=== PATIENT | male | born 1940 | race Caucasian/White ===

== ENCOUNTER 2016-11-28 16:35 | Emergency (ER) | payer MEDICARE, OTHER ==
[2016-11-28 17:21] LABS: HEMOGLOBIN 10.9 gm/dl (14.0-17.5); RED BLOOD COUNT 3.66 M/UL (4.20-5.50); WHITE BLOOD COUNT 18.6 K/UL (4.5-11.0)
[2017-01-30] MEDS ORDERED: CARDIZEM30 MG PO (22:19)
[2017-01-30] MEDS ORDERED: LIPITOR TAB 2020 MG PO (22:20)
[2017-01-30] MEDS ORDERED: NEURONTIN 300300 MG PO (22:20)
[2017-01-30] MEDS ORDERED: LANTUS100 UNIT/1 SQ (22:21)
[2017-01-30] MEDS ORDERED: MIRALAX17 GM PO (22:21)
[2017-01-30] MEDS ORDERED: CARTIA XT240 MG PO (22:21)
[2017-01-30] MEDS ORDERED: OMEPRAZOLE20 M1 PO (22:22)
[2017-01-30] MEDS ORDERED: NOVOLOG FL100 UNIT/1 SQ (22:22)
[2017-01-30] MEDS ORDERED: ADVAIR 250-501 EACH INH (22:23)
[2017-03-18] MEDS ORDERED: MIDODRINE HCL5 MG PO (00:44)
[2017-03-18] MEDS ORDERED: MEGACE TAB 40 M40 MG PO (00:45)
[2017-03-18] MEDS ORDERED: FLOMAX 0.4 MG0.4 MG PO (00:46)
[2017-03-18] MEDS ORDERED: FINASTERIDE5 MG PO (00:48)
[2017-03-18] MEDS ORDERED: NOVOLIN 70100 UNIT/1 SQ (01:08)
[2017-03-18] MEDS ORDERED: LANTUS INS100 UTS/M1 SQ (01:08)
[2017-03-18] MEDS ORDERED: NOVOLOG 10100 UNITS/ INJ (01:10)
[2017-03-18] MEDS ORDERED: PHOSLO 667 MG667 MG PO (22:21)
[2017-03-22] MEDS ORDERED: LORTAB 5-325 M1 EACH PO (22:20)
== END 2016-11-28 23:05 | disposition short-term general hospital (02) ==
LOC: ER1 16:35
PROVIDERS: Emergency Medicine
DX: E11.52 Type 2 diabetes mellitus with diabetic peripheral angiopathy with gangrene (principal); F17.210 Nicotine dependence, cigarettes, uncomplicated; D64.9 Anemia, unspecified; I13.10 Hypertensive heart and chronic kidney disease without heart failure, with stage 1 through stage 4 chronic kidney disease, or unspecified chronic kidney disease; E11.22 Type 2 diabetes mellitus with diabetic chronic kidney disease; N18.9 Chronic kidney disease, unspecified; Z99.2 Dependence on renal dialysis
CPT/HCPCS: 36415; 71010; 73610; 80053; 82550; 82553; 83874; 84484; 85025; 85610; 85730; 87040; 93005; 93925; 93970; 96365; 96366; 96367; 96375; 96376; 99285; J0713; J1644; J2270; J2405; J3370

== ENCOUNTER 2016-12-21 05:59 | Inpatient (IN) | payer MEDICARE, OTHER ==
[~2016-12-21] VITALS: Ht 170.2 cm; Wt 63.5 kg
[2016-12-21 07:39] LABS: HEMOGLOBIN 7.4 gm/dl (14.0-17.5); RED BLOOD COUNT 2.57 M/UL (4.20-5.50); WHITE BLOOD COUNT 11.2 K/UL (4.5-11.0)
[2016-12-21] MEDS ORDERED: ADVAIR 250-501 EACH INH (13:53)
[2016-12-21] MEDS ORDERED: LORTAB 5-325 M1 EACH PO (13:54)
[2016-12-21] MEDS ORDERED: VENTOLIN HFA 66.7 GM INH (14:28)
[2016-12-21] MEDS ORDERED: AMOX TR-K CLV1 EAC3 PO (14:30)
[2016-12-21] MEDS ORDERED: ATORVASTATIN CA40 MG PO (14:31)
[2016-12-21] MEDS ORDERED: NEURONTIN 300300 MG PO (14:31)
[2016-12-21] MEDS ORDERED: LANTUS100 UNIT/1 SQ (14:36)
[2016-12-21] MEDS ORDERED: ELAVIL 50 MG TA50 MG PO (14:36)
[2016-12-21] MEDS ORDERED: PHOSLO 667 MG667 MG PO (14:39)
[2016-12-21] MEDS ORDERED: PROAIR HFA8.5 GM INH (14:40)
[2016-12-21] MEDS ORDERED: OMEPRAZOLE MAGN20 MG PO (14:41)
[2016-12-21] MEDS ORDERED: DILTIAZEM 24HR240 MG PO (14:41)
[2016-12-22 04:44] LABS: RED BLOOD COUNT 2.34 M/UL (4.20-5.50)
[2016-12-22 04:49] LABS: HEMOGLOBIN 6.7 gm/dl (14.0-17.5)
[2016-12-23 04:40] LABS: WHITE BLOOD COUNT 9.7 K/UL (4.5-11.0)
[2016-12-23 04:41] LABS: HEMOGLOBIN 9.9 gm/dl (14.0-17.5); RED BLOOD COUNT 3.38 M/UL (4.20-5.50)
[2017-01-30] MEDS ORDERED: CARDIZEM30 MG PO (22:19)
[2017-01-30] MEDS ORDERED: NEURONTIN 300300 MG PO (22:20)
[2017-01-30] MEDS ORDERED: LIPITOR TAB 2020 MG PO (22:20)
[2017-01-30] MEDS ORDERED: CARTIA XT240 MG PO (22:21)
[2017-01-30] MEDS ORDERED: MIRALAX17 GM PO (22:21)
[2017-01-30] MEDS ORDERED: LANTUS100 UNIT/1 SQ (22:21)
[2017-01-30] MEDS ORDERED: OMEPRAZOLE20 M1 PO (22:22)
[2017-01-30] MEDS ORDERED: NOVOLOG FL100 UNIT/1 SQ (22:22)
[2017-01-30] MEDS ORDERED: ADVAIR 250-501 EACH INH (22:23)
[2017-03-18] MEDS ORDERED: MIDODRINE HCL5 MG PO (00:44)
[2017-03-18] MEDS ORDERED: MEGACE TAB 40 M40 MG PO (00:45)
[2017-03-18] MEDS ORDERED: FLOMAX 0.4 MG0.4 MG PO (00:46)
[2017-03-18] MEDS ORDERED: FINASTERIDE5 MG PO (00:48)
[2017-03-18] MEDS ORDERED: NOVOLIN 70100 UNIT/1 SQ (01:08)
[2017-03-18] MEDS ORDERED: LANTUS INS100 UTS/M1 SQ (01:08)
[2017-03-18] MEDS ORDERED: NOVOLOG 10100 UNITS/ INJ (01:10)
[2017-03-18] MEDS ORDERED: PHOSLO 667 MG667 MG PO (22:21)
[2017-03-22] MEDS ORDERED: LORTAB 5-325 M1 EACH PO (22:20)
== END 2016-12-24 20:18 | disposition home health service (06) | DRG 638 ==
LOC: ER1 05:59 → MED SURG 4 09:30 → ZEROF 09:30 → MED SURG 4 12:44
PROVIDERS: Emergency Medicine; Internal Medicine Nephrology; ADMIT Internal Medicine
PROC: 5A1D60Z (ICD-10-PCS; principal; 2016-12-22)
DX: E11.649 Type 2 diabetes mellitus with hypoglycemia without coma (principal); I12.0 Hypertensive chronic kidney disease with stage 5 chronic kidney disease or end stage renal disease; E11.52 Type 2 diabetes mellitus with diabetic peripheral angiopathy with gangrene; J98.11 Atelectasis; T81.4XXA Infection following a procedure, initial encounter; E11.22 Type 2 diabetes mellitus with diabetic chronic kidney disease; N18.6 End stage renal disease; E87.6 Hypokalemia; D64.9 Anemia, unspecified; E78.5 Hyperlipidemia, unspecified; I25.10 Atherosclerotic heart disease of native coronary artery without angina pectoris; Z95.5 Presence of coronary angioplasty implant and graft; Z99.2 Dependence on renal dialysis; Z79.4 Long term (current) use of insulin; F17.200 Nicotine dependence, unspecified, uncomplicated; E11.621 Type 2 diabetes mellitus with foot ulcer; L97.519 Non-pressure chronic ulcer of other part of right foot with unspecified severity; I25.2 Old myocardial infarction; H54.8 Legal blindness, as defined in USA
CPT/HCPCS: 36415; 71010; 80048; 80053; 80202; 82272; 82550; 82553; 82728; 82962; 83036; 83540; 83550; 83605; 83735; 83874; 83880; 84132; 84439; 84443; 84466; 84484; 85025; 85027; 86850; 86900; 86901; 86920; 87040; 90935; 93005; 94640; 94664; 96365; 99285; J0885; J1644; J1956; J2270; J2550; J3370; J7030; J7050; J7070; P9016; Q9965

== ENCOUNTER 2017-01-03 17:50 | Observation (INO) | payer MEDICARE, OTHER ==
[~2017-01-03] VITALS: Ht 167.6 cm; Wt 59.6 kg
[~2017-01-03 17:50] MED LIST: ADVAIR 250-501 EACH INH; AMOX TR-K CLV1 EAC3 PO; ATORVASTATIN CA40 MG PO; DILTIAZEM 24HR240 MG PO; ELAVIL 50 MG TA50 MG PO; LANTUS100 UNIT/1 SQ; LORTAB 5-325 M1 EACH PO; NEURONTIN 300300 MG PO; OMEPRAZOLE MAGN20 MG PO; PHOSLO 667 MG667 MG PO; PROAIR HFA8.5 GM INH; VENTOLIN HFA 66.7 GM INH
[2017-01-03 20:05] LABS: HEMOGLOBIN 7.8 gm/dl (14.0-17.5); RED BLOOD COUNT 2.65 M/UL (4.20-5.50); WHITE BLOOD COUNT 9.3 K/UL (4.5-11.0)
[2017-01-04] MEDS ORDERED: DULERA 200 MCG8.8 GM INH (01:27)
[2017-01-04 08:06] LABS: HEMOGLOBIN 9.3 gm/dl (14.0-17.5)
[2017-01-05 04:44] LABS: HEMOGLOBIN 9.6 gm/dl (14.0-17.5); WHITE BLOOD COUNT 8.5 K/UL (4.5-11.0)
[2017-01-05 04:45] LABS: RED BLOOD COUNT 3.3 M/UL (4.20-5.50)
[2017-01-30] MEDS ORDERED: CARDIZEM30 MG PO (22:19)
[2017-01-30] MEDS ORDERED: NEURONTIN 300300 MG PO (22:20)
[2017-01-30] MEDS ORDERED: LIPITOR TAB 2020 MG PO (22:20)
[2017-01-30] MEDS ORDERED: LANTUS100 UNIT/1 SQ (22:21)
[2017-01-30] MEDS ORDERED: MIRALAX17 GM PO (22:21)
[2017-01-30] MEDS ORDERED: CARTIA XT240 MG PO (22:21)
[2017-01-30] MEDS ORDERED: NOVOLOG FL100 UNIT/1 SQ (22:22)
[2017-01-30] MEDS ORDERED: OMEPRAZOLE20 M1 PO (22:22)
[2017-01-30] MEDS ORDERED: ADVAIR 250-501 EACH INH (22:23)
[2017-03-18] MEDS ORDERED: MIDODRINE HCL5 MG PO (00:44)
[2017-03-18] MEDS ORDERED: MEGACE TAB 40 M40 MG PO (00:45)
[2017-03-18] MEDS ORDERED: FLOMAX 0.4 MG0.4 MG PO (00:46)
[2017-03-18] MEDS ORDERED: FINASTERIDE5 MG PO (00:48)
[2017-03-18] MEDS ORDERED: NOVOLIN 70100 UNIT/1 SQ (01:08)
[2017-03-18] MEDS ORDERED: LANTUS INS100 UTS/M1 SQ (01:08)
[2017-03-18] MEDS ORDERED: NOVOLOG 10100 UNITS/ INJ (01:10)
[2017-03-18] MEDS ORDERED: PHOSLO 667 MG667 MG PO (22:21)
[2017-03-22] MEDS ORDERED: LORTAB 5-325 M1 EACH PO (22:20)
== END 2017-01-05 16:00 | disposition home or self-care (01) ==
LOC: ER1 17:50 → MED SURG 4 20:50 → ZEROF 20:50 → MED SURG 4 23:54
PROVIDERS: Emergency Medicine; Internal Medicine Nephrology; ADMIT Internal Medicine
DX: N18.6 End stage renal disease (principal); D63.1 Anemia in chronic kidney disease; E11.22 Type 2 diabetes mellitus with diabetic chronic kidney disease; I12.0 Hypertensive chronic kidney disease with stage 5 chronic kidney disease or end stage renal disease; E11.649 Type 2 diabetes mellitus with hypoglycemia without coma; I34.0 Nonrheumatic mitral (valve) insufficiency; I35.0 Nonrheumatic aortic (valve) stenosis; I27.2 Other secondary pulmonary hypertension; I07.1 Rheumatic tricuspid insufficiency; R79.89 Other specified abnormal findings of blood chemistry; I73.9 Peripheral vascular disease, unspecified; E78.5 Hyperlipidemia, unspecified; I96 Gangrene, not elsewhere classified; I25.10 Atherosclerotic heart disease of native coronary artery without angina pectoris; J44.9 Chronic obstructive pulmonary disease, unspecified; E87.6 Hypokalemia; Z79.899 Other long term (current) drug therapy; Z95.5 Presence of coronary angioplasty implant and graft; Z89.611 Acquired absence of right leg above knee; Z87.891 Personal history of nicotine dependence; Z79.82 Long term (current) use of aspirin; Z79.02 Long term (current) use of antithrombotics/antiplatelets; E11.65 Type 2 diabetes mellitus with hyperglycemia; E03.9 Hypothyroidism, unspecified; I50.22 Chronic systolic (congestive) heart failure; D51.9 Vitamin B12 deficiency anemia, unspecified; D50.9 Iron deficiency anemia, unspecified; E53.8 Deficiency of other specified B group vitamins; E55.9 Vitamin D deficiency, unspecified
CPT/HCPCS: ECHO; 36415; 36430; 71010; 80053; 80061; 82248; 82272; 82550; 82553; 82607; 82728; 82962; 83540; 83550; 83735; 84439; 84443; 84484; 85014; 85018; 85025; 85027; 85610; 85730; 86850; 86900; 86901; 86920; 93005; 93306; 94640; 94664; 96374; 96376; 99285; C9113; G0378; J7050; P9016